=== PATIENT | female | born 1995 | race Caucasian/White ===

== ENCOUNTER 2017-06-19 17:40 | Emergency (ER) | payer OTHER ==
[2017-06-19] MEDS ORDERED: PROVERA10 M1 PO (19:48)
[2017-06-19] MEDS ORDERED: SYNTHROID75 MC1 PO (19:48)
[2017-06-19] MEDS ORDERED: PREMARIN0.625 MG/T (19:49)
== END 2017-06-19 21:30 ==
LOC: EDMED 17:40
DX: R51 Headache (principal); R11.10 Vomiting, unspecified; Z86.011 Personal history of benign neoplasm of the brain
CPT/HCPCS: J0780; J1200; J1885; J7030